=== PATIENT | male | born 1950 | race Asian ===

== ENCOUNTER 2023-05-24 15:06 | Inpatient (IN) | payer OTHER, MEDICAID ==
[~2023-05-24] VITALS: Ht 170.2 cm; Wt 79.8 kg
[2023-05-24 16:00] VITALS: PULSE 114; RESP 33; O2SAT 98
[2023-05-24] MEDS ORDERED: SODIUM CHLORIDE 0.9% 1,000 ML IV ONE (16:15)
[2023-05-24] MEDS ORDERED: methylPREDNISolone SOD SUCC 40 MG/ML VL IV ONE (16:45)
[2023-05-24] MEDS ORDERED: diphenhdrAMINE HCL 50 MG/1 ML VL IV ONE (16:45)
[2023-05-24] MEDS ORDERED: SODIUM CHLORIDE 0.9% 500 ML IV ONE (16:45)
[2023-05-24 16:48] LABS: Basophils # (auto) 0.1 10 ^3/uL (0-0.2); Basophils % (auto) 0.6 % (0.0-2.0); Eosinophils # (auto) 0.3 10 ^3/uL (0-0.8); Eosinophils % (auto) 2.8 % (0.0-7.0); Hematocrit 42.4 % (41.0-53.0); Hemoglobin 14.3 g/dL (13.5-17.5); Lymphocytes # (auto) 0.9 10 ^3/uL (0.4-5.4); Lymphocytes % (auto) 9.4 % (10.0-50.0); Mean Corpuscular Hemoglobin 31.8 pg (28.0-32.0); Mean Corpuscular Hgb Conc. 33.6 g/dL (32.0-36.0); Mean Corpuscular Volume 94.7 fL (80.0-100.0); Monocytes # (auto) 0.5 10 ^3/uL (0-1.3); Monocytes % (auto) 5.4 % (0.0-12.0); Neutrophils # (auto) 7.8 10 ^3/uL (1.6-8.6); Neutrophils % (auto) 81.8 % (37.0-80.0); Nucleated Red Blood Cells % 0.1 %; Red Blood Cells 4.48 10^6/uL (4.5-5.90); Red Cell Distribution Width 15.9 % (11.8-14.3); White Blood Cell 9.5 10^3/uL (4.4-10.8)
[2023-05-24] MEDS ORDERED: methylPREDNISolone SOD SUCC 125 MG/2 ML VL ONE (16:48)
[2023-05-24 17:20] LABS: Alanine Aminotransferase 23 U/L (7-40); Alkaline Phosphatase 119 U/L (46-116); Anion Gap 8 (5-15); Aspartate Aminotransferase 17 U/L (13-40); BUN/Creatinine Ratio 13.5 (10.0-20.0); Blood Urea Nitrogen 28 mg/dL (9-23); Calcium 9.1 mg/dL (8.7-10.4); Carbon Dioxide 23 mmol/L (20-30); Chloride 109 mmol/L (98-107); Glucose 239 mg/dL (74-106); Magnesium 2.5 mg/dL (1.6-2.6); Potassium 4.1 mmol/L (3.5-5.1); Sodium 140 mmol/L (136-145)
[2023-05-24 17:21] LABS: Albumin 4.8 g/dL (3.2-4.8); Bilirubin, Total 0.6 mg/dL (0.2-1.0); Total Protein 7.8 g/dL (5.7-8.2)
[2023-05-24] MEDS ORDERED: FUROSEMIDE 40 MG/4 ML VIAL IV ONE (17:30)
[2023-05-24] MEDS ORDERED: MORPHINE SULFATE INJ 2 MG/ml SYRG IV ONE (17:30)
[2023-05-24] MEDS ORDERED: cefTRIAXone 1GM/50ML D5W 50 ML IV ONE (17:30)
[2023-05-24] MEDS ORDERED: SPIRONOLACTONE 25 MG TAB PO ONE (17:30)
[2023-05-24 18:26] LABS: INR 0.97 (0.9-1.15); Partial Thromboplastin Time 30.2 SEC (24.5-34.5); Prothrombin Time 10.2 sec (9.3-11.8)
[2023-05-24] MEDS ORDERED: ENOXAPARIN SOD 60 MG/0.6 ML SYRINGE SC ONE (18:45)
[2023-05-24] MEDS: SODIUM CHLORIDE 0.9% 1,000 ML IV SCH (19:10)
[2023-05-24 19:12] LABS: Urine Bacteria NONE SEEN /hpf (None Seen); Urine Blood Negative /uL (Negative); Urine Clarity Clear (Clear); Urine Color Colorless (Yellow); Urine Protein, UAD Negative (Negative); Urine Urobilinogen Normal (Negative); Urine WBC 1 /hpf (0 - 3)
[2023-05-24 19:25] VITALS: PULSE 116; RESP 21; O2SAT 95
[2023-05-24] MEDS ORDERED: ACETAMINOPHEN 325 MG TAB PO PRN (19:45)
[2023-05-24] MEDS ORDERED: ONDANSETRON HCL 4 MG/2 ML VIAL IV PRN (19:45)
[2023-05-24] MEDS ORDERED: DEXTROSE (50%) 50ML SYRG IV PRN (19:45)
[2023-05-24] MEDS ORDERED: LOSA100T58 PO (20:20)
[2023-05-24] MEDS ORDERED: ROSU1TAB15 PO (20:20)
[2023-05-24] MEDS ORDERED: AMLO1TAB23 PO (20:20)
[2023-05-24] MEDS: ACCU-CHEK COMFORT CURVE STRIP VI SCH (22:00)
[2023-05-24] MEDS ORDERED: ASPirin-EC 325mg tab PO ONE (22:00)
[2023-05-24] MEDS: InsuLIN REG 1unit/0.01ml Soln (100units/ml) SC SCH (22:37)
[2023-05-24 22:41] VITALS: BP 142/74; PULSE 18; RESP 18; O2SAT 98
[2023-05-24 23:01] VITALS: PULSE 110; RESP 22; O2SAT 93
[2023-05-24] MEDS: ALBUTEROL SULF 2.5 MG/0.5ML(0.5%) NEB SOLN NEB PRN (23:01)
[2023-05-24] MEDS: IPRATROPIUM BROM 0.5 MG/2.5ML INH SOL NEB PRN (23:01)
[2023-05-24 23:02] VITALS: O2SAT 93
[2023-05-24 23:12] VITALS: PULSE 85; RESP 20; O2SAT 97
[2023-05-25] VITALS (12 sets, daily range): BP systolic 129–146; BP diastolic 72–84; PULSE 91–109; RESP 13–24; TEMP 98.4; O2SAT 93–97
[2023-05-25 00:23] LABS: COVID19 ANTIGEN SOFIA FIA NEGATIVE (NEGATIVE); Rapid Influenza A Negative (Negative); Rapid Influenza B Negative (Negative)
[2023-05-25] MEDS: MORPHINE SULFATE INJ 2 MG/ml SYRG IV PRN (00:27)
[2023-05-25] MEDS: NITROGLYCERIN 0.4 MG SL TAB SL PRN (01:06)
[2023-05-25] MEDS: HYDROcodone-ACET 5/325MG TAB PO PRN (05:22)
[2023-05-25] MEDS: ALBUTEROL SULF 2.5 MG/0.5ML(0.5%) NEB SOLN NEB PRN (05:29)
[2023-05-25] MEDS: IPRATROPIUM BROM 0.5 MG/2.5ML INH SOL NEB PRN (05:29)
[2023-05-25 05:31] LABS: Basophils # (auto) 0 10 ^3/uL (0-0.2); Basophils % (auto) 0.1 % (0.0-2.0); Eosinophils # (auto) 0 10 ^3/uL (0-0.8); Hemoglobin 13.6 g/dL (13.5-17.5); Lymphocytes # (auto) 0.4 10 ^3/uL (0.4-5.4); Mean Corpuscular Hemoglobin 31.6 pg (28.0-32.0); Mean Corpuscular Hgb Conc. 33.2 g/dL (32.0-36.0); Monocytes # (auto) 0.1 10 ^3/uL (0-1.3); Monocytes % (auto) 0.9 % (0.0-12.0); Neutrophils # (auto) 8.4 10 ^3/uL (1.6-8.6); Red Blood Cells 4.31 10^6/uL (4.5-5.90); Red Cell Distribution Width 15.9 % (11.8-14.3); White Blood Cell 8.8 10^3/uL (4.4-10.8)
[2023-05-25 06:18] LABS: Alanine Aminotransferase 20 U/L (7-40); Albumin 4.6 g/dL (3.2-4.8); Alkaline Phosphatase 111 U/L (46-116); Anion Gap 10 (5-15); Aspartate Aminotransferase 16 U/L (13-40); BUN/Creatinine Ratio 14.6 (10.0-20.0); Bilirubin, Total 0.5 mg/dL (0.2-1.0); Blood Urea Nitrogen 29 mg/dL (9-23); Calcium 8.9 mg/dL (8.7-10.4); Carbon Dioxide 21 mmol/L (20-30); Chloride 107 mmol/L (98-107); Glucose 147 mg/dL (74-106); Potassium 4.5 mmol/L (3.5-5.1); Sodium 138 mmol/L (136-145); Total Protein 7.5 g/dL (5.7-8.2)
[2023-05-25] MEDS: ACCU-CHEK COMFORT CURVE STRIP VI SCH ×4 (06:43→21:55)
[2023-05-25] MEDS: InsuLIN REG 1unit/0.01ml Soln (100units/ml) SC SCH ×4 (06:44→21:59)
[2023-05-25] MEDS ORDERED: METO-289 PO (08:15)
[2023-05-25] MEDS ORDERED: cefTRIAXone 1GM/50ML D5W 50 ML IV SCH (09:00)
[2023-05-25] MEDS ORDERED: AZITHROMYCIN 500MG/ 250ML 250 ML IV SCH (10:00)
[2023-05-25] MEDS ORDERED: PANTOPRAZOLE 40 MG TAB PO SCH (10:00)
[2023-05-25] MEDS ORDERED: ENOXAPARIN SOD 30 MG/0.3 ML SYRINGE SC SCH (10:00)
[2023-05-25] MEDS ORDERED: PATIENTS OWN MEDICATION (Rosuvastatin Calcium 1 TAB) PO SCH (10:00)
[2023-05-25] MEDS ORDERED: ENOXAPARIN SOD 100 MG/1 ML SYRINGE SC SCH (10:00)
[2023-05-25] MEDS ORDERED: PATIENTS OWN MEDICATION (Amlodipine Besylate 1 TAB) PO SCH (10:00)
[2023-05-25] MEDS ORDERED: ASPirin-EC 81 mg tab PO SCH (10:00)
[2023-05-25 10:46] LABS: Triglycerides 111 mg/dL (< 150)
[2023-05-25 10:47] LABS: LDL Cholesterol 59 mg/dL (< 100)
[2023-05-25 10:48] LABS: Cholesterol 111 mg/dL (< 200); HDL Cholesterol 37 mg/dL (40-59)
[2023-05-25] MEDS: FUROSEMIDE 20 MG/2 ML VIAL IV SCH (11:36)
[2023-05-25] MEDS: methylPREDNISolone SOD SUCC 40 MG/ML VL IV SCH ×2 (11:37→21:58)
[2023-05-25] MEDS ORDERED: NITROGLYCERIN 0.2MG/HR TOPICAL PATCH TD ONE (12:30)
[2023-05-25] MEDS ORDERED: CLOPIDOGREL 300 MG TAB PO ONE (12:45)
[2023-05-25] MEDS: IPRATROPIUM BROM 0.5 MG/2.5ML INH SOL NEB SCH (18:20)
[2023-05-25] MEDS: ALBUTEROL SULF 2.5 MG/0.5ML(0.5%) NEB SOLN NEB SCH (18:20)
[2023-05-25] MEDS: SODIUM CHLORIDE 0.9% 1,000 ML IV SCH (18:42)
[2023-05-25] MEDS ORDERED: ENOXAPARIN SOD 80 MG/0.8ML SYRINGE SC SCH (22:00)
[2023-05-26] VITALS (74 sets, daily range): BP systolic 106–150; BP diastolic 43–105; PULSE 76–119; RESP 11–29; TEMP 97.5–98.2; O2SAT 87–99
[2023-05-26] MEDS: IPRATROPIUM BROM 0.5 MG/2.5ML INH SOL NEB SCH ×5 (00:05→18:38)
[2023-05-26] MEDS: ALBUTEROL SULF 2.5 MG/0.5ML(0.5%) NEB SOLN NEB SCH ×5 (00:05→18:38)
[2023-05-26] MEDS: MORPHINE SULFATE INJ 2 MG/ml SYRG IV PRN ×2 (03:29→05:04)
[2023-05-26] MEDS ORDERED: HEPARIN SODIUM (PORCINE) 5000 UNITS/ML 1ML VIAL IV ONE (05:00)
[2023-05-26] MEDS ORDERED: HEPARIN DRIP/D5W 100UNITS/ML 250 ML IV SCH (05:00)
[2023-05-26 05:47] LABS: Basophils # (auto) 0 10 ^3/uL (0-0.2); Basophils % (auto) 0.1 % (0.0-2.0); Eosinophils # (auto) 0 10 ^3/uL (0-0.8); Hematocrit 40.1 % (41.0-53.0); Hemoglobin 13.8 g/dL (13.5-17.5); Lymphocytes # (auto) 0.8 10 ^3/uL (0.4-5.4); Lymphocytes % (auto) 6.3 % (10.0-50.0); Mean Corpuscular Hemoglobin 31.8 pg (28.0-32.0); Mean Corpuscular Hgb Conc. 34.3 g/dL (32.0-36.0); Mean Corpuscular Volume 92.9 fL (80.0-100.0); Monocytes # (auto) 0.6 10 ^3/uL (0-1.3); Monocytes % (auto) 4.8 % (0.0-12.0); Neutrophils # (auto) 11.3 10 ^3/uL (1.6-8.6); Neutrophils % (auto) 88.8 % (37.0-80.0); Red Blood Cells 4.32 10^6/uL (4.5-5.90); Red Cell Distribution Width 15.6 % (11.8-14.3); White Blood Cell 12.7 10^3/uL (4.4-10.8)
[2023-05-26 05:59] LABS: Chloride 108 mmol/L (98-107); Sodium 139 mmol/L (136-145)
[2023-05-26 06:00] LABS: Anion Gap 10 (5-15); Calcium 8.7 mg/dL (8.5-10.1); Carbon Dioxide 21 mmol/L (20-30)
[2023-05-26 06:01] LABS: INR 1.02 (0.9-1.15); Partial Thromboplastin Time 32.5 SEC (24.5-34.5); Prothrombin Time 10.7 sec (9.3-11.8)
[2023-05-26 06:05] LABS: BUN/Creatinine Ratio 19.4 (10.0-20.0); Blood Urea Nitrogen 35 mg/dL (9-23); Glucose 164 mg/dL (74-106)
[2023-05-26] MEDS ORDERED: NITROGLYCERIN 50MG/250ML 250 ML IV ONE (06:46)
[2023-05-26] MEDS: ACCU-CHEK COMFORT CURVE STRIP VI SCH ×4 (07:00→22:10)
[2023-05-26] MEDS: InsuLIN REG 1unit/0.01ml Soln (100units/ml) SC SCH ×4 (07:00→22:15)
[2023-05-26] MEDS ORDERED: HEPARIN IN NS 1000Units/500mL 0 ML ONE (07:36)
[2023-05-26] MEDS ORDERED: IODIXANOL 320MG/ML 100ML BTL IV ONE ×4 (07:36→08:46)
[2023-05-26] MEDS ORDERED: LIDOCAINE 2%HCL (LOCAL ANESTH.) INJ 20ML MDV ONE (07:36)
[2023-05-26] MEDS ORDERED: fentaNYL CITRATE 100 MCG/2 ML VL ONE (08:01)
[2023-05-26] MEDS ORDERED: MIDAZOLAM HCL 2MG/2ML 2ml VIAL (1mg/ml) ONE (08:01)
[2023-05-26] MEDS ORDERED: ANGIOMAX 250 MG VIAL IV ONE (08:01)
[2023-05-26] MEDS ORDERED: SODIUM CHL 0.9% 50 ML ONE (08:02)
[2023-05-26] MEDS ORDERED: VERAPAMIL 2.5MG/ML INJ 2ML VIAL IV ONE (08:10)
[2023-05-26] MEDS ORDERED: ATROPINE SULF 1 MG/10ml SYR ONE (08:30)
[2023-05-26] MEDS ORDERED: HYDROmorphone HCL 2 MG/ML VL/or syr ONE (08:52)
[2023-05-26] MEDS ORDERED: METOPROLOL TARTRATE 1MG/1ML-5ML VIAL IV ONE (09:14)
[2023-05-26] MEDS ORDERED: KETOROLAC TROMETH 30 MG/ML 1ML VIAL IV ONE (09:15)
[2023-05-26] MEDS ORDERED: TICAGRELOR 90 MG TAB ONE (09:23)
[2023-05-26] MEDS: NITROGLYCERIN 50MG/250ML 250 ML IV SCH (09:30)
[2023-05-26] MEDS ORDERED: ALPRAZolam 0.25 MG TAB PO PRN (10:00)
[2023-05-26] MEDS ORDERED: ZOLPIDEM TARTRATE 5 MG TAB PO ONE (10:00)
[2023-05-26] MEDS ORDERED: CLOPIDOGREL BISULFATE 75 MG TAB PO SCH (10:00)
[2023-05-26] MEDS ORDERED: METOPROLOL SUCCINATE XL 50 MG TAB PO SCH (10:00)
[2023-05-26] MEDS ORDERED: ZOLPIDEM TARTRATE 5 MG TAB PO PRN (11:00)
[2023-05-26] MEDS ORDERED: amLODIPine BESYLATE 5 MG TAB PO ONE (11:00)
[2023-05-26] MEDS: FUROSEMIDE 20 MG/2 ML VIAL IV SCH (11:06)
[2023-05-26] MEDS: methylPREDNISolone SOD SUCC 40 MG/ML VL IV SCH ×2 (11:06→21:59)
[2023-05-26] MEDS: ASPirin 81 mg TAB PO SCH (11:07)
[2023-05-26] MEDS: CARVEDILOL 3.125 MG TAB PO SCH ×2 (11:08→22:01)
[2023-05-26] MEDS: LISINOPRIL 5 MG TAB PO SCH (11:09)
[2023-05-26] MEDS: PANTOPRAZOLE 40 MG TAB PO SCH (11:09)
[2023-05-26] MEDS: ACETYLCYSTEINE ORAL for CIN 20%(200MG/ML) 4ML PO SCH ×2 (11:12→22:02)
[2023-05-26] MEDS: SODIUM CHLORIDE 0.9% 1,000 ML IV SCH (16:34)
[2023-05-26] MEDS ORDERED: ACETYLCYSTEINE PO FOR APAP TOX 200 MG/ML ML ONE (21:56)
[2023-05-26] MEDS: TICAGRELOR 90 MG TAB PO SCH (22:00)
[2023-05-26] MEDS: ATORVASTATIN 20 MG TAB PO SCH (22:00)
[2023-05-27] VITALS (96 sets, daily range): BP systolic 93–150; BP diastolic 30–109; PULSE 66–119; RESP 11–29; TEMP 97–98.1; O2SAT 90–100
[2023-05-27] MEDS: ALBUTEROL SULF 2.5 MG/0.5ML(0.5%) NEB SOLN NEB SCH ×4 (00:02→18:28)
[2023-05-27] MEDS: IPRATROPIUM BROM 0.5 MG/2.5ML INH SOL NEB SCH ×4 (00:02→18:28)
[2023-05-27 04:42] LABS: Basophils # (auto) 0 10 ^3/uL (0-0.2); Eosinophils # (auto) 0 10 ^3/uL (0-0.8); Hematocrit 42.1 % (41.0-53.0); Hemoglobin 13.9 g/dL (13.5-17.5); Lymphocytes # (auto) 0.6 10 ^3/uL (0.4-5.4); Lymphocytes % (auto) 4.3 % (10.0-50.0); Mean Corpuscular Hemoglobin 31.7 pg (28.0-32.0); Mean Corpuscular Hgb Conc. 33.1 g/dL (32.0-36.0); Mean Corpuscular Volume 95.7 fL (80.0-100.0); Monocytes # (auto) 0.4 10 ^3/uL (0-1.3); Monocytes % (auto) 2.9 % (0.0-12.0); Neutrophils # (auto) 13.4 10 ^3/uL (1.6-8.6); Neutrophils % (auto) 92.8 % (37.0-80.0); Nucleated Red Blood Cells % 0.1 %; Red Blood Cells 4.41 10^6/uL (4.5-5.90); Red Cell Distribution Width 16.3 % (11.8-14.3); White Blood Cell 14.4 10^3/uL (4.4-10.8)
[2023-05-27 05:09] LABS: Alanine Aminotransferase 26 U/L (7-40); Albumin 4.2 g/dL (3.2-4.8); Alkaline Phosphatase 89 U/L (46-116); Anion Gap 10 (5-15); Aspartate Aminotransferase 66 U/L (13-40); Bilirubin, Total 0.8 mg/dL (0.2-1.0); Blood Urea Nitrogen 30 mg/dL (9-23); Calcium 8.7 mg/dL (8.7-10.4); Carbon Dioxide 20 mmol/L (20-30); Chloride 106 mmol/L (98-107); Glucose 163 mg/dL (74-106); Potassium 4.2 mmol/L (3.5-5.1); Sodium 136 mmol/L (136-145); Total Protein 7.1 g/dL (5.7-8.2)
[2023-05-27] MEDS: NITROGLYCERIN 50MG/250ML 250 ML IV SCH (06:09)
[2023-05-27] MEDS: InsuLIN REG 1unit/0.01ml Soln (100units/ml) SC SCH ×4 (06:18→21:54)
[2023-05-27] MEDS: ACCU-CHEK COMFORT CURVE STRIP VI SCH ×4 (06:19→21:41)
[2023-05-27] MEDS ORDERED: amLODIPine BESYLATE 5 MG TAB PO SCH (10:00)
[2023-05-27] MEDS ORDERED: FUROSEMIDE 20 MG/2 ML VIAL IV SCH (10:45)
[2023-05-27] MEDS: SODIUM CHLORIDE 0.9% 1,000 ML IV SCH ×2 (10:45→22:38)
[2023-05-27] MEDS ORDERED: SODIUM CHLORIDE 0.9% 1,000 ML IV ONE (10:45)
[2023-05-27] MEDS: cefTRIAXone 1GM/50ML D5W 50 ML IV SCH (11:18)
[2023-05-27] MEDS: ASPirin 81 mg TAB PO SCH (11:18)
[2023-05-27] MEDS: methylPREDNISolone SOD SUCC 40 MG/ML VL IV SCH ×2 (11:18→21:40)
[2023-05-27] MEDS: PANTOPRAZOLE 40 MG TAB PO SCH (11:19)
[2023-05-27] MEDS: CARVEDILOL 3.125 MG TAB PO SCH ×2 (11:19→21:39)
[2023-05-27] MEDS: TICAGRELOR 90 MG TAB PO SCH ×2 (11:20→21:40)
[2023-05-27] MEDS: LISINOPRIL 5 MG TAB PO SCH (11:20)
[2023-05-27] MEDS: DOCUSATE SOD 100 MG CAP PO PRN (11:31)
[2023-05-27 12:30] LABS: Potassium 4.1 mmol/L (3.5-5.1)
[2023-05-27] MEDS: ACETYLCYSTEINE ORAL for CIN 20%(200MG/ML) 4ML PO SCH ×2 (12:37→21:42)
[2023-05-27] MEDS: DOXYCYCLINE 100MG/250ML 250 ML IV SCH (12:53)
[2023-05-27] MEDS ORDERED: FUROSEMIDE 40 MG/4 ML VIAL IV ONE (13:00)
[2023-05-27 18:27] LABS: Urine WBC None Seen /hpf (0 - 3)
[2023-05-27 19:09] LABS: Urine Bacteria NONE SEEN /hpf (None Seen); Urine Blood Negative /uL (Negative); Urine Clarity Clear (Clear); Urine Color Colorless (Yellow); Urine Protein, UAD Negative (Negative); Urine Specific Gravity 1.007 (1.001-1.035); Urine Urobilinogen Normal (Negative)
[2023-05-27] MEDS: ATORVASTATIN 20 MG TAB PO SCH (21:39)
[2023-05-28] VITALS (95 sets, daily range): BP systolic 87–155; BP diastolic 46–101; PULSE 58–110; RESP 11–31; TEMP 96.9–98; O2SAT 88–99
[2023-05-28] MEDS: IPRATROPIUM BROM 0.5 MG/2.5ML INH SOL NEB SCH ×4 (00:07→18:05)
[2023-05-28] MEDS: ALBUTEROL SULF 2.5 MG/0.5ML(0.5%) NEB SOLN NEB SCH ×4 (00:07→18:05)
[2023-05-28] MEDS: DOXYCYCLINE 100MG/250ML 250 ML IV SCH ×3 (00:44→23:59)
[2023-05-28 05:00] LABS: Basophils # (auto) 0 10 ^3/uL (0-0.2); Basophils % (auto) 0.1 % (0.0-2.0); Eosinophils # (auto) 0 10 ^3/uL (0-0.8); Hematocrit 40.3 % (41.0-53.0); Hemoglobin 13.5 g/dL (13.5-17.5); Lymphocytes # (auto) 0.7 10 ^3/uL (0.4-5.4); Lymphocytes % (auto) 6.3 % (10.0-50.0); Mean Corpuscular Hemoglobin 31.7 pg (28.0-32.0); Mean Corpuscular Hgb Conc. 33.5 g/dL (32.0-36.0); Mean Corpuscular Volume 94.6 fL (80.0-100.0); Monocytes # (auto) 0.4 10 ^3/uL (0-1.3); Monocytes % (auto) 3.8 % (0.0-12.0); Neutrophils % (auto) 89.8 % (37.0-80.0); Nucleated Red Blood Cells % 0.1 %; Red Blood Cells 4.26 10^6/uL (4.5-5.90); Red Cell Distribution Width 16.3 % (11.8-14.3); White Blood Cell 11.2 10^3/uL (4.4-10.8)
[2023-05-28 05:10] LABS: Chloride 106 mmol/L (98-107); Potassium 4.4 mmol/L (3.5-5.1); Sodium 135 mmol/L (136-145)
[2023-05-28 05:11] LABS: Calcium 8.5 mg/dL (8.5-10.1)
[2023-05-28 05:16] LABS: BUN/Creatinine Ratio 16.5 (10.0-20.0); Blood Urea Nitrogen 28 mg/dL (9-23); Glucose 171 mg/dL (74-106)
[2023-05-28 05:27] LABS: Anion Gap 10 (5-15); Carbon Dioxide 19 mmol/L (20-30)
[2023-05-28] MEDS: NITROGLYCERIN 50MG/250ML 250 ML IV SCH (06:25)
[2023-05-28] MEDS: ACCU-CHEK COMFORT CURVE STRIP VI SCH ×4 (06:38→21:37)
[2023-05-28] MEDS: InsuLIN REG 1unit/0.01ml Soln (100units/ml) SC SCH ×4 (06:40→21:46)
[2023-05-28] MEDS: cefTRIAXone 1GM/50ML D5W 50 ML IV SCH (09:20)
[2023-05-28] MEDS: methylPREDNISolone SOD SUCC 40 MG/ML VL IV SCH ×2 (09:46→21:36)
[2023-05-28] MEDS: PANTOPRAZOLE 40 MG TAB PO SCH (09:47)
[2023-05-28] MEDS: LISINOPRIL 5 MG TAB PO SCH (09:47)
[2023-05-28] MEDS: TICAGRELOR 90 MG TAB PO SCH ×2 (09:47→21:37)
[2023-05-28] MEDS: CARVEDILOL 3.125 MG TAB PO SCH ×2 (09:48→21:37)
[2023-05-28] MEDS ORDERED: IODIXANOL 320MG/ML 100ML BTL IV ONE (09:53)
[2023-05-28] MEDS ORDERED: LIDOCAINE 2%HCL (LOCAL ANESTH.) INJ 20ML MDV ONE (09:53)
[2023-05-28] MEDS: ACETYLCYSTEINE ORAL for CIN 20%(200MG/ML) 4ML PO SCH ×2 (09:54→21:36)
[2023-05-28] MEDS: ASPirin 81 mg TAB PO SCH (09:55)
[2023-05-28] MEDS ORDERED: ANGIOMAX 250 MG VIAL IV ONE (10:06)
[2023-05-28] MEDS ORDERED: MIDAZOLAM HCL 2MG/2ML 2ml VIAL (1mg/ml) ONE (10:07)
[2023-05-28] MEDS ORDERED: SODIUM CHL 0.9% 50 ML ONE (10:07)
[2023-05-28] MEDS ORDERED: fentaNYL CITRATE 100 MCG/2 ML VL ONE (10:07)
[2023-05-28] MEDS ORDERED: ATROPINE SULF 1 MG/10ml SYR ONE (10:35)
[2023-05-28] MEDS ORDERED: EPINEPHrine HCL 1 MG/10 ML SYRG ONE (10:35)
[2023-05-28] MEDS ORDERED: METOPROLOL TARTRATE 1MG/1ML-5ML VIAL IV ONE (10:53)
[2023-05-28] MEDS: MORPHINE SULFATE INJ 2 MG/ml SYRG IV PRN (11:53)
[2023-05-28] MEDS: FUROSEMIDE 40 MG/4 ML VIAL IV SCH (11:57)
[2023-05-28] MEDS: SODIUM CHLORIDE 0.9% 1,000 ML IV SCH ×2 (13:25→18:19)
[2023-05-28] MEDS: ATORVASTATIN 20 MG TAB PO SCH (21:37)
[2023-05-29] VITALS (56 sets, daily range): BP systolic 87–159; BP diastolic 42–98; PULSE 61–104; RESP 10–22; TEMP 97.6–98.9; O2SAT 92–100
[2023-05-29] MEDS: IPRATROPIUM BROM 0.5 MG/2.5ML INH SOL NEB SCH ×4 (00:20→17:53)
[2023-05-29] MEDS: ALBUTEROL SULF 2.5 MG/0.5ML(0.5%) NEB SOLN NEB SCH ×4 (00:20→17:53)
[2023-05-29] MEDS: HYDROcodone-ACET 5/325MG TAB PO PRN (02:51)
[2023-05-29 04:10] LABS: Basophils # (auto) 0 10 ^3/uL (0-0.2); Eosinophils # (auto) 0 10 ^3/uL (0-0.8); Hematocrit 42.7 % (41.0-53.0); Hemoglobin 14.4 g/dL (13.5-17.5); Lymphocytes # (auto) 0.6 10 ^3/uL (0.4-5.4); Lymphocytes % (auto) 6.5 % (10.0-50.0); Mean Corpuscular Hemoglobin 31.6 pg (28.0-32.0); Mean Corpuscular Hgb Conc. 33.8 g/dL (32.0-36.0); Mean Corpuscular Volume 93.8 fL (80.0-100.0); Monocytes # (auto) 0.6 10 ^3/uL (0-1.3); Neutrophils # (auto) 7.9 10 ^3/uL (1.6-8.6); Neutrophils % (auto) 86.5 % (37.0-80.0); Nucleated Red Blood Cells % 0.1 %; Red Blood Cells 4.55 10^6/uL (4.5-5.90); White Blood Cell 9.1 10^3/uL (4.4-10.8)
[2023-05-29 04:20] LABS: Anion Gap 9 (5-15); Carbon Dioxide 20 mmol/L (20-30); Chloride 105 mmol/L (98-107); Potassium 4.3 mmol/L (3.5-5.1); Sodium 134 mmol/L (136-145)
[2023-05-29 04:22] LABS: Calcium 8.7 mg/dL (8.7-10.4)
[2023-05-29 04:26] LABS: BUN/Creatinine Ratio 19.9 (10.0-20.0); Blood Urea Nitrogen 34 mg/dL (9-23)
[2023-05-29 04:42] LABS: Glucose 164 mg/dL (74-106)
[2023-05-29] MEDS: ACCU-CHEK COMFORT CURVE STRIP VI SCH ×4 (06:27→21:45)
[2023-05-29] MEDS: InsuLIN REG 1unit/0.01ml Soln (100units/ml) SC SCH ×4 (06:28→21:58)
[2023-05-29] MEDS: cefTRIAXone 1GM/50ML D5W 50 ML IV SCH (08:54)
[2023-05-29] MEDS: ASPirin 81 mg TAB PO SCH (09:55)
[2023-05-29] MEDS: FUROSEMIDE 40 MG/4 ML VIAL IV SCH (09:55)
[2023-05-29] MEDS: methylPREDNISolone SOD SUCC 40 MG/ML VL IV SCH ×2 (09:55→21:45)
[2023-05-29] MEDS: HCTZ 25 MG TAB PO SCH (09:56)
[2023-05-29] MEDS: TICAGRELOR 90 MG TAB PO SCH ×2 (09:57→21:45)
[2023-05-29] MEDS: PANTOPRAZOLE 40 MG TAB PO SCH (09:57)
[2023-05-29] MEDS: CARVEDILOL 12.5 MG TAB PO SCH ×2 (09:59→21:46)
[2023-05-29] MEDS ORDERED: CARVEDILOL 3.125 MG TAB PO SCH (10:00)
[2023-05-29] MEDS: DOCUSATE SOD 100 MG CAP PO PRN (10:21)
[2023-05-29] MEDS: DOXYCYCLINE 100MG/250ML 250 ML IV SCH ×2 (11:35→23:46)
[2023-05-29] MEDS ORDERED: SPIRONOLACTONE 25 MG TAB PO ONE (16:45)
[2023-05-29] MEDS: ATORVASTATIN 20 MG TAB PO SCH (21:45)
[2023-05-29] MEDS: hydrALAZINE HCL 20 MG/ML VL IV PRN (23:55)
[2023-05-30] VITALS (96 sets, daily range): BP systolic 91–180; BP diastolic 50–123; PULSE 64–106; RESP 8–24; TEMP 97.5–98.6; O2SAT 91–100
[2023-05-30] MEDS: NITROGLYCERIN 0.4 MG SL TAB SL PRN ×2 (00:34→05:47)
[2023-05-30] MEDS: ALBUTEROL SULF 2.5 MG/0.5ML(0.5%) NEB SOLN NEB SCH ×4 (00:42→18:53)
[2023-05-30] MEDS: IPRATROPIUM BROM 0.5 MG/2.5ML INH SOL NEB SCH ×4 (00:42→18:53)
[2023-05-30] MEDS: MORPHINE SULFATE INJ 2 MG/ml SYRG IV PRN ×3 (00:43→14:36)
[2023-05-30 04:21] LABS: Basophils # (auto) 0 10 ^3/uL (0-0.2); Eosinophils # (auto) 0 10 ^3/uL (0-0.8); Hematocrit 47.3 % (41.0-53.0); Hemoglobin 15.7 g/dL (13.5-17.5); Lymphocytes # (auto) 0.7 10 ^3/uL (0.4-5.4); Lymphocytes % (auto) 8.6 % (10.0-50.0); Mean Corpuscular Hemoglobin 31.5 pg (28.0-32.0); Mean Corpuscular Hgb Conc. 33.2 g/dL (32.0-36.0); Mean Corpuscular Volume 94.8 fL (80.0-100.0); Monocytes # (auto) 0.5 10 ^3/uL (0-1.3); Monocytes % (auto) 5.6 % (0.0-12.0); Neutrophils # (auto) 7.4 10 ^3/uL (1.6-8.6); Neutrophils % (auto) 85.8 % (37.0-80.0); Red Blood Cells 4.99 10^6/uL (4.5-5.90); Red Cell Distribution Width 15.7 % (11.8-14.3); White Blood Cell 8.7 10^3/uL (4.4-10.8)
[2023-05-30 04:32] LABS: Chloride 103 mmol/L (98-107); Potassium 4.1 mmol/L (3.5-5.1); Sodium 133 mmol/L (136-145)
[2023-05-30 04:33] LABS: Calcium 8.8 mg/dL (8.5-10.1)
[2023-05-30 04:37] LABS: Glucose 181 mg/dL (74-106)
[2023-05-30 04:38] LABS: BUN/Creatinine Ratio 18.5 (10.0-20.0); Blood Urea Nitrogen 36 mg/dL (9-23)
[2023-05-30 04:48] LABS: Anion Gap 10 (5-15); Carbon Dioxide 20 mmol/L (20-30)
[2023-05-30] MEDS: ACCU-CHEK COMFORT CURVE STRIP VI SCH ×4 (06:40→22:03)
[2023-05-30] MEDS: InsuLIN REG 1unit/0.01ml Soln (100units/ml) SC SCH ×4 (06:42→22:08)
[2023-05-30] MEDS ORDERED: NITROGLYCERIN 50MG/250ML 250 ML IV ONE (08:06)
[2023-05-30] MEDS: NITROGLYCERIN 50MG/250ML 250 ML IV SCH (08:13)
[2023-05-30] MEDS ORDERED: SODIUM CHLORIDE 0.9% 1,000 ML IV SCH (08:15)
[2023-05-30] MEDS: cefTRIAXone 1GM/50ML D5W 50 ML IV SCH (09:00)
[2023-05-30] MEDS: methylPREDNISolone SOD SUCC 40 MG/ML VL IV SCH ×2 (10:08→21:57)
[2023-05-30] MEDS: FUROSEMIDE 40 MG/4 ML VIAL IV SCH (10:08)
[2023-05-30] MEDS: ASPirin 81 mg TAB PO SCH (10:09)
[2023-05-30] MEDS: TICAGRELOR 90 MG TAB PO SCH ×2 (10:09→21:58)
[2023-05-30] MEDS: CARVEDILOL 12.5 MG TAB PO SCH ×2 (10:09→21:57)
[2023-05-30] MEDS: PANTOPRAZOLE 40 MG TAB PO SCH (10:09)
[2023-05-30] MEDS: SPIRONOLACTONE 25 MG TAB PO SCH (10:10)
[2023-05-30] MEDS: HCTZ 25 MG TAB PO SCH (10:12)
[2023-05-30] MEDS ORDERED: IODIXANOL 320MG/ML 100ML BTL IV ONE (10:35)
[2023-05-30] MEDS ORDERED: LIDOCAINE 2%HCL (LOCAL ANESTH.) INJ 20ML MDV ONE (10:35)
[2023-05-30] MEDS ORDERED: fentaNYL CITRATE 100 MCG/2 ML VL ONE (10:39)
[2023-05-30] MEDS ORDERED: MIDAZOLAM HCL 2MG/2ML 2ml VIAL (1mg/ml) ONE (10:39)
[2023-05-30] MEDS ORDERED: VERAPAMIL 2.5MG/ML INJ 2ML VIAL IV ONE (10:41)
[2023-05-30] MEDS ORDERED: HEPARIN SODIUM (PORCINE) 5000 UNITS/ML 1ML VIAL ONE (10:41)
[2023-05-30] MEDS ORDERED: SODIUM CHL 0.9% 50 ML ONE (11:18)
[2023-05-30] MEDS ORDERED: ANGIOMAX 250 MG VIAL IV ONE (11:18)
[2023-05-30] MEDS ORDERED: FUROSEMIDE 40 MG/4 ML VIAL IV ONE (12:00)
[2023-05-30] MEDS: DOXYCYCLINE 100MG/250ML 250 ML IV SCH ×2 (12:31→23:53)
[2023-05-30] MEDS: SODIUM CHLORIDE 0.9% 1,000 ML IV SCH ×2 (12:32→21:58)
[2023-05-30] MEDS: ATORVASTATIN 20 MG TAB PO SCH (22:18)
[2023-05-31] VITALS (79 sets, daily range): BP systolic 99–164; BP diastolic 59–90; PULSE 58–113; RESP 9–32; TEMP 97.9–98.7; O2SAT 91–100
[2023-05-31] MEDS: IPRATROPIUM BROM 0.5 MG/2.5ML INH SOL NEB SCH ×4 (00:26→18:48)
[2023-05-31] MEDS: ALBUTEROL SULF 2.5 MG/0.5ML(0.5%) NEB SOLN NEB SCH ×4 (00:26→18:48)
[2023-05-31] MEDS: SODIUM CHLORIDE 0.9% 1,000 ML IV SCH ×3 (02:46→21:43)
[2023-05-31 04:33] LABS: Anion Gap 8 (5-15); Carbon Dioxide 22 mmol/L (20-30); Chloride 102 mmol/L (98-107); Potassium 4.1 mmol/L (3.5-5.1); Sodium 132 mmol/L (136-145)
[2023-05-31 04:34] LABS: Calcium 8.5 mg/dL (8.7-10.4)
[2023-05-31 04:39] LABS: BUN/Creatinine Ratio 21.1 (10.0-20.0); Blood Urea Nitrogen 38 mg/dL (9-23); Glucose 148 mg/dL (74-106)
[2023-05-31 04:49] LABS: Basophils # (auto) 0 10 ^3/uL (0-0.2); Basophils % (auto) 0.5 % (0.0-2.0); Eosinophils # (auto) 0 10 ^3/uL (0-0.8); Hematocrit 46.1 % (41.0-53.0); Hemoglobin 15.3 g/dL (13.5-17.5); Lymphocytes # (auto) 0.6 10 ^3/uL (0.4-5.4); Mean Corpuscular Hemoglobin 31.3 pg (28.0-32.0); Mean Corpuscular Hgb Conc. 33.3 g/dL (32.0-36.0); Mean Corpuscular Volume 94.2 fL (80.0-100.0); Monocytes # (auto) 0.5 10 ^3/uL (0-1.3); Monocytes % (auto) 5.1 % (0.0-12.0); Neutrophils # (auto) 8.6 10 ^3/uL (1.6-8.6); Neutrophils % (auto) 88.4 % (37.0-80.0); Nucleated Red Blood Cells % 0.1 %; Red Blood Cells 4.89 10^6/uL (4.5-5.90); Red Cell Distribution Width 15.9 % (11.8-14.3); White Blood Cell 9.7 10^3/uL (4.4-10.8)
[2023-05-31] MEDS: ACCU-CHEK COMFORT CURVE STRIP VI SCH ×4 (06:24→21:46)
[2023-05-31] MEDS: InsuLIN REG 1unit/0.01ml Soln (100units/ml) SC SCH ×4 (06:28→21:47)
[2023-05-31] MEDS: cefTRIAXone 1GM/50ML D5W 50 ML IV SCH (08:08)
[2023-05-31] MEDS: NITROGLYCERIN 50MG/250ML 250 ML IV SCH (08:08)
[2023-05-31] MEDS: methylPREDNISolone SOD SUCC 40 MG/ML VL IV SCH ×2 (10:17→21:43)
[2023-05-31] MEDS: SPIRONOLACTONE 25 MG TAB PO SCH (10:18)
[2023-05-31] MEDS: ASPirin 81 mg TAB PO SCH (10:19)
[2023-05-31] MEDS: CARVEDILOL 12.5 MG TAB PO SCH ×2 (10:19→21:45)
[2023-05-31] MEDS: TICAGRELOR 90 MG TAB PO SCH ×2 (10:20→21:44)
[2023-05-31] MEDS: PANTOPRAZOLE 40 MG TAB PO SCH (10:20)
[2023-05-31] MEDS: HCTZ 25 MG TAB PO SCH (10:20)
[2023-05-31] MEDS ORDERED: DEXTROSE (50%) 50ML SYRG IV PRN ×2 (11:30)
[2023-05-31] MEDS ORDERED: InsuLIN REG 1unit/0.01ml Soln (100units/ml) SC SCH ×2 (11:30→22:00)
[2023-05-31] MEDS ORDERED: ACCU-CHEK COMFORT CURVE STRIP VI SCH (11:30)
[2023-05-31] MEDS: DOXYCYCLINE 100MG/250ML 250 ML IV SCH ×2 (12:18→23:25)
[2023-05-31] MEDS ORDERED: RANOLAZINE ER 500 MG TAB PO ONE (13:30)
[2023-05-31] MEDS ORDERED: ISOSORBIDE MONONITRATE ER 60 MG TAB PO ONE (13:30)
[2023-05-31] MEDS: ATORVASTATIN 20 MG TAB PO SCH (21:45)
[2023-05-31] MEDS: RANOLAZINE ER 500 MG TAB PO SCH (21:46)
[2023-06-01] VITALS (53 sets, daily range): BP systolic 103–173; BP diastolic 47–89; PULSE 60–100; RESP 10–37; TEMP 97.5–98.7; O2SAT 90–99
[2023-06-01] MEDS: ALBUTEROL SULF 2.5 MG/0.5ML(0.5%) NEB SOLN NEB SCH ×3 (00:40→11:52)
[2023-06-01] MEDS: IPRATROPIUM BROM 0.5 MG/2.5ML INH SOL NEB SCH ×4 (00:40→18:07)
[2023-06-01 04:24] LABS: Alanine Aminotransferase 34 U/L (7-40); Albumin 3.8 g/dL (3.2-4.8); Alkaline Phosphatase 72 U/L (46-116); Anion Gap 8 (5-15); Aspartate Aminotransferase 18 U/L (13-40); Bilirubin, Total 0.9 mg/dL (0.2-1.0); Blood Urea Nitrogen 31 mg/dL (9-23); Calcium 8.3 mg/dL (8.7-10.4); Carbon Dioxide 20 mmol/L (20-30); Chloride 105 mmol/L (98-107); Glucose 158 mg/dL (74-106); Potassium 4.7 mmol/L (3.5-5.1); Sodium 133 mmol/L (136-145); Total Protein 6.4 g/dL (5.7-8.2)
[2023-06-01 04:32] LABS: Basophils # (auto) 0 10 ^3/uL (0-0.2); Basophils % (auto) 0.1 % (0.0-2.0); Eosinophils # (auto) 0 10 ^3/uL (0-0.8); Hematocrit 42.9 % (41.0-53.0); Hemoglobin 14.3 g/dL (13.5-17.5); Lymphocytes # (auto) 0.4 10 ^3/uL (0.4-5.4); Lymphocytes % (auto) 4.5 % (10.0-50.0); Mean Corpuscular Hemoglobin 31.9 pg (28.0-32.0); Mean Corpuscular Hgb Conc. 33.3 g/dL (32.0-36.0); Mean Corpuscular Volume 95.5 fL (80.0-100.0); Monocytes # (auto) 0.3 10 ^3/uL (0-1.3); Monocytes % (auto) 3.7 % (0.0-12.0); Neutrophils # (auto) 7.6 10 ^3/uL (1.6-8.6); Neutrophils % (auto) 91.7 % (37.0-80.0); Nucleated Red Blood Cells % 0.1 %; Red Blood Cells 4.49 10^6/uL (4.5-5.90); White Blood Cell 8.3 10^3/uL (4.4-10.8)
[2023-06-01] MEDS: SODIUM CHLORIDE 0.9% 1,000 ML IV SCH ×3 (05:16→20:00)
[2023-06-01] MEDS ORDERED: ALBUTEROL MEDNEB 2.5 mg/3ml NEB ONE ×2 (05:34→11:40)
[2023-06-01] MEDS: ACCU-CHEK COMFORT CURVE STRIP VI SCH ×4 (06:40→22:00)
[2023-06-01] MEDS: InsuLIN REG 1unit/0.01ml Soln (100units/ml) SC SCH ×4 (06:42→22:00)
[2023-06-01] MEDS: methylPREDNISolone SOD SUCC 40 MG/ML VL IV SCH ×2 (08:59→20:41)
[2023-06-01] MEDS: cefTRIAXone 1GM/50ML D5W 50 ML IV SCH (09:00)
[2023-06-01] MEDS: RANOLAZINE ER 500 MG TAB PO SCH ×2 (09:02→20:43)
[2023-06-01] MEDS: CARVEDILOL 12.5 MG TAB PO SCH ×2 (09:02→20:42)
[2023-06-01] MEDS: PANTOPRAZOLE 40 MG TAB PO SCH (09:02)
[2023-06-01] MEDS: TICAGRELOR 90 MG TAB PO SCH ×2 (09:02→20:42)
[2023-06-01] MEDS: ISOSORBIDE MONONITRATE ER 60 MG TAB PO SCH (09:03)
[2023-06-01] MEDS: SPIRONOLACTONE 25 MG TAB PO SCH (09:04)
[2023-06-01] MEDS: ASPirin 81 mg TAB PO SCH (09:04)
[2023-06-01] MEDS: DOXYCYCLINE 100MG/250ML 250 ML IV SCH (11:12)
[2023-06-01] MEDS: ALBUTEROL MEDNEB 2.5 mg/3ml NEB NEB SCH ×2 (12:15→18:07)
[2023-06-01] MEDS: ATORVASTATIN 20 MG TAB PO SCH (20:42)
[2023-06-02] VITALS (37 sets, daily range): BP systolic 99–170; BP diastolic 65–105; PULSE 54–89; RESP 12–28; TEMP 97.7–98.2; O2SAT 90–99
[2023-06-02] MEDS: ALBUTEROL MEDNEB 2.5 mg/3ml NEB NEB SCH ×3 (00:15→12:15)
[2023-06-02] MEDS: SODIUM CHLORIDE 0.9% 1,000 ML IV SCH ×2 (06:00→12:00)
[2023-06-02] MEDS: hydrALAZINE HCL 20 MG/ML VL IV PRN (06:14)
[2023-06-02] MEDS: ACCU-CHEK COMFORT CURVE STRIP VI SCH ×2 (06:25→12:04)
[2023-06-02] MEDS: InsuLIN REG 1unit/0.01ml Soln (100units/ml) SC SCH ×2 (06:26→12:07)
[2023-06-02] MEDS: IPRATROPIUM BROM 0.5 MG/2.5ML INH SOL NEB SCH ×3 (07:00→12:00)
[2023-06-02] MEDS: amLODIPine BESYLATE 5 MG TAB PO SCH ×2 (07:39→10:10)
[2023-06-02 07:46] LABS: Basophils # (auto) 0 10 ^3/uL (0-0.2); Basophils % (auto) 0.2 % (0.0-2.0); Eosinophils # (auto) 0 10 ^3/uL (0-0.8); Hematocrit 44.5 % (41.0-53.0); Hemoglobin 14.9 g/dL (13.5-17.5); Lymphocytes # (auto) 0.4 10 ^3/uL (0.4-5.4); Lymphocytes % (auto) 4.4 % (10.0-50.0); Mean Corpuscular Hemoglobin 31.6 pg (28.0-32.0); Mean Corpuscular Hgb Conc. 33.5 g/dL (32.0-36.0); Mean Corpuscular Volume 94.4 fL (80.0-100.0); Monocytes # (auto) 0.6 10 ^3/uL (0-1.3); Monocytes % (auto) 6.2 % (0.0-12.0); Neutrophils # (auto) 8.2 10 ^3/uL (1.6-8.6); Neutrophils % (auto) 89.2 % (37.0-80.0); Red Blood Cells 4.71 10^6/uL (4.5-5.90); Red Cell Distribution Width 16.2 % (11.8-14.3); White Blood Cell 9.2 10^3/uL (4.4-10.8)
[2023-06-02 08:08] LABS: Alanine Aminotransferase 34 U/L (7-40); Albumin 3.8 g/dL (3.2-4.8); Alkaline Phosphatase 66 U/L (46-116); Anion Gap 8 (5-15); Aspartate Aminotransferase 15 U/L (13-40); BUN/Creatinine Ratio 16.8 (10.0-20.0); Bilirubin, Total 0.9 mg/dL (0.2-1.0); Blood Urea Nitrogen 29 mg/dL (9-23); Calcium 8.6 mg/dL (8.5-10.1); Carbon Dioxide 21 mmol/L (20-30); Chloride 106 mmol/L (98-107); Glucose 174 mg/dL (74-106); Potassium 4.6 mmol/L (3.5-5.1); Sodium 135 mmol/L (136-145); Total Protein 6.4 g/dL (5.7-8.2)
[2023-06-02] MEDS: cefTRIAXone 1GM/50ML D5W 50 ML IV SCH (09:21)
[2023-06-02] MEDS: methylPREDNISolone SOD SUCC 40 MG/ML VL IV SCH (09:36)
[2023-06-02] MEDS: ASPirin 81 mg TAB PO SCH (09:37)
[2023-06-02] MEDS: ISOSORBIDE MONONITRATE ER 60 MG TAB PO SCH (09:37)
[2023-06-02] MEDS: CARVEDILOL 12.5 MG TAB PO SCH (09:40)
[2023-06-02] MEDS: TICAGRELOR 90 MG TAB PO SCH (09:40)
[2023-06-02] MEDS: SPIRONOLACTONE 25 MG TAB PO SCH (09:40)
[2023-06-02] MEDS: RANOLAZINE ER 500 MG TAB PO SCH (09:40)
[2023-06-02] MEDS: PANTOPRAZOLE 40 MG TAB PO SCH (09:40)
[2023-06-02] MEDS: DOXYCYCLINE 100MG/250ML 250 ML IV SCH ×2 (12:00)
[2023-06-02] MEDS ORDERED: AML5T PO (14:48)
[2023-06-02] MEDS ORDERED: ASPI-325 PO (14:48)
[2023-06-02] MEDS ORDERED: ISO60SRT PO (14:48)
[2023-06-02] MEDS ORDERED: CAR125T PO (14:48)
[2023-06-02] MEDS ORDERED: TICA90TA PO (14:48)
== END 2023-06-02 16:16 | disposition home or self-care (01) | DRG 323 ==
LOC: EDBD 15:06 → ER 15:06 → TELE 20:04 → DOU IN ICU 05-25 23:12 → ICU WEST 05-26 18:05
PROVIDERS: ADMIT Nurse Practitioner Family; ATTEND Nurse Practitioner Acute Care
PROC: 027034Z Dilation of Coronary Artery, One Artery with Drug-eluting Intraluminal Device, Percutaneous Approach (ICD-10-PCS; principal; 2023-05-26)
PROC: 02703DZ Dilation of Coronary Artery, One Artery with Intraluminal Device, Percutaneous Approach (ICD-10-PCS; 2023-05-26)
PROC: B240ZZ3 Ultrasonography of Single Coronary Artery, Intravascular (ICD-10-PCS; 2023-05-26)
PROC: 4A023N7 Measurement of Cardiac Sampling and Pressure, Left Heart, Percutaneous Approach (ICD-10-PCS; 2023-05-26)
PROC: B211YZZ Fluoroscopy of Multiple Coronary Arteries using Other Contrast (ICD-10-PCS; 2023-05-26)
PROC: B215YZZ Fluoroscopy of Left Heart using Other Contrast (ICD-10-PCS; 2023-05-26)
PROC: 02F03ZZ Fragmentation in Coronary Artery, One Artery, Percutaneous Approach (ICD-10-PCS; 2023-05-28)
PROC: 02703DZ Dilation of Coronary Artery, One Artery with Intraluminal Device, Percutaneous Approach (ICD-10-PCS; 2023-05-28)
PROC: 4A023N7 Measurement of Cardiac Sampling and Pressure, Left Heart, Percutaneous Approach (ICD-10-PCS; 2023-05-28)
PROC: B211YZZ Fluoroscopy of Multiple Coronary Arteries using Other Contrast (ICD-10-PCS; 2023-05-28)
PROC: 4A023N7 Measurement of Cardiac Sampling and Pressure, Left Heart, Percutaneous Approach (ICD-10-PCS; 2023-05-30)
PROC: B211YZZ Fluoroscopy of Multiple Coronary Arteries using Other Contrast (ICD-10-PCS; 2023-05-30)
PROC: B240ZZ3 Ultrasonography of Single Coronary Artery, Intravascular (ICD-10-PCS; 2023-05-30)
PROC: 5A1935Z Respiratory Ventilation, Less than 24 Consecutive Hours (ICD-10-PCS; 2023-06-01)
DX: I21.4 Non-ST elevation (NSTEMI) myocardial infarction (principal); I50.43 Acute on chronic combined systolic (congestive) and diastolic (congestive) heart failure; J96.01 Acute respiratory failure with hypoxia; J15.69 Pneumonia due to other Gram-negative bacteria; N17.0 Acute kidney failure with tubular necrosis; I13.0 Hypertensive heart and chronic kidney disease with heart failure and stage 1 through stage 4 chronic kidney disease, or unspecified chronic kidney disease; J44.1 Chronic obstructive pulmonary disease with (acute) exacerbation; J45.901 Unspecified asthma with (acute) exacerbation; J44.0 Chronic obstructive pulmonary disease with (acute) lower respiratory infection; Z20.822 Contact with and (suspected) exposure to COVID-19; E78.5 Hyperlipidemia, unspecified; E11.22 Type 2 diabetes mellitus with diabetic chronic kidney disease; E11.65 Type 2 diabetes mellitus with hyperglycemia; I25.10 Atherosclerotic heart disease of native coronary artery without angina pectoris; F17.200 Nicotine dependence, unspecified, uncomplicated; N18.32 Chronic kidney disease, stage 3b; Z79.899 Other long term (current) drug therapy; Z79.02 Long term (current) use of antithrombotics/antiplatelets
CPT/HCPCS: 36415; 71045; 76775; 80048; 80053; 80061; 81001; 82962; 83036; 83735; 83880; 84132; 84443; 84484; 85025; 85379; 85610; 85730; 86850; 86900; 86901; 87040; 87081; 87426; 87804; 92928; 92941; 92978; 93005; 93306; 93458; 93970; 93971; 94640; 96365; 96375; 97163; 99152; 99153; C1874; C1887; G0378; J0696; J1815; J2250; J3490; Q9967

== ENCOUNTER 2023-09-21 10:00 | Inpatient (IN) | payer OTHER, MEDICAID ==
[~2023-09-21] VITALS: Ht 170.2 cm; Wt 81.8 kg
[~2023-09-21 10:00] MED LIST: AML5T PO; AMLO1TAB23 PO; ASPI-325 PO; CAR125T PO; ISO60SRT PO; LOSA100T58 PO; METO-289 PO; ROSU1TAB15 PO; TICA90TA PO
[2023-09-21 10:15] VITALS: PULSE 78; RESP 17; TEMP 98.4; O2SAT 95
[2023-09-21 10:36] LABS: Basophils # (auto) 0 10 ^3/uL (0-0.2); Basophils % (auto) 0.3 % (0.0-2.0); Eosinophils # (auto) 0.1 10 ^3/uL (0-0.8); Eosinophils % (auto) 2.1 % (0.0-7.0); Hematocrit 39.4 % (41.0-53.0); Hemoglobin 12.9 g/dL (13.5-17.5); Lymphocytes # (auto) 0.8 10 ^3/uL (0.4-5.4); Lymphocytes % (auto) 12.7 % (10.0-50.0); Mean Corpuscular Hemoglobin 32.3 pg (28.0-32.0); Mean Corpuscular Hgb Conc. 32.7 g/dL (32.0-36.0); Mean Corpuscular Volume 98.8 fL (80.0-100.0); Monocytes # (auto) 0.5 10 ^3/uL (0-1.3); Monocytes % (auto) 7.3 % (0.0-12.0); Neutrophils # (auto) 5.2 10 ^3/uL (1.6-8.6); Neutrophils % (auto) 77.6 % (37.0-80.0); Red Blood Cells 3.99 10^6/uL (4.5-5.90); Red Cell Distribution Width 16.4 % (11.8-14.3); White Blood Cell 6.6 10^3/uL (4.4-10.8)
[2023-09-21] MEDS: ONDANSETRON HCL 4 MG/2 ML VIAL IV ONE (10:40)
[2023-09-21] MEDS: MORPHINE SULFATE 4 MG/ML SYR/VIAL IV ONE (10:41)
[2023-09-21] MEDS: NITROGLYCERIN 0.4 MG SL TAB SL ONE (10:41)
[2023-09-21 10:49] LABS: Alanine Aminotransferase 13 U/L (7-40); Alkaline Phosphatase 96 U/L (46-116); Anion Gap 9 (5-15); Aspartate Aminotransferase 27 U/L (13-40); BUN/Creatinine Ratio 15.8 (10.0-20.0); Blood Urea Nitrogen 28 mg/dL (9-23); Calcium 8.8 mg/dL (8.5-10.1); Carbon Dioxide 22 mmol/L (20-30); Chloride 112 mmol/L (98-107); Glucose 111 mg/dL (74-106); Potassium 3.9 mmol/L (3.5-5.1); Sodium 143 mmol/L (136-145)
[2023-09-21 10:50] LABS: Bilirubin, Total 1.8 mg/dL (0.2-1.0); Total Protein 5.8 g/dL (5.7-8.2)
[2023-09-21] MEDS: HEPARIN SODIUM (PORCINE) 5000 UNITS/ML 1ML VIAL IV ONE ×2 (11:15→11:18)
[2023-09-21] MEDS: HEPARIN DRIP/D5W 100UNITS/ML 250 ML IV SCH (11:40)
[2023-09-21] MEDS ORDERED: ALPRAZolam 0.25 MG TAB PO PRN (12:30)
[2023-09-21 12:37] LABS: INR 1.03 (0.9-1.15); Partial Thromboplastin Time 31.1 SEC (24.5-34.5); Prothrombin Time 10.8 sec (9.3-11.8)
[2023-09-21] MEDS ORDERED: MORPHINE SULFATE INJ 2 MG/ml SYRG IV PRN (13:15)
[2023-09-21] MEDS: EPTIFIBATIDE DRIP(0.75MG/ML) 100 ML IV ONE (13:51)
[2023-09-21] MEDS: EPTIFIBATIDE INJ (2MG/ML) 10ML VIAL IV ONE (13:54)
[2023-09-21] MEDS: CLOPIDOGREL BISULFATE 75 MG TAB PO SCH (13:57)
[2023-09-21] MEDS: MORPHINE SULFATE INJ 2 MG/ml SYRG IV PRN ×2 (14:33→16:15)
[2023-09-21] MEDS: NOREPINEPHRINE 8 MG/250ML KIT 250 ML IV ONE (15:02)
[2023-09-21] MEDS: NOREPINEPHRINE 8 MG/250ML KIT 250 ML IV SCH (15:02)
[2023-09-21] MEDS: PANTOPRAZOLE 40 MG/10 ML VIAL INJ IV SCH (15:14)
[2023-09-21] MEDS: NITROGLYCERIN 0.4 MG SL TAB SL PRN (15:16)
[2023-09-21 15:26] LABS: Urine Bacteria NONE SEEN /hpf (None Seen); Urine Blood Negative /uL (Negative); Urine Clarity Clear (Clear); Urine Color Yellow (Yellow); Urine Protein, UAD TRACE (Negative); Urine Specific Gravity 1.031 (1.001-1.035); Urine WBC 1 /hpf (0 - 3); Urine pH 5.5 (5.0-8.0)
[2023-09-21] MEDS: SODIUM CHLORIDE 0.9% 500 ML IV ONE (16:41)
[2023-09-21] MEDS: PHENYLEPHRINE IV 250 ML IV ONE (16:43)
[2023-09-21] MEDS: DOPamine 1600MCG/ML D5W 250 ML IV ONE (16:43)
[2023-09-21] MEDS: diphenhdrAMINE HCL 50 MG/1 ML VL ONE (16:49)
[2023-09-21] MEDS: diphenhdrAMINE HCL 50 MG/1 ML VL IV ONE (16:49)
[2023-09-21 17:03] VITALS: O2SAT 90
[2023-09-21] MEDS: PHENYLEPHRINE IV 250 ML IV SCH (17:29)
[2023-09-21] MEDS: DOPamine 1600MCG/ML D5W 250 ML IV SCH (17:30)
[2023-09-21] MEDS: ONDANSETRON HCL 4 MG/2 ML VIAL IV PRN (17:31)
[2023-09-21 17:32] LABS: Lipase 30 U/L (12-53)
[2023-09-21 17:34] LABS: Amylase 50 U/L (30-118)
[2023-09-21 17:46] LABS: INR 1.07 (0.9-1.15); Prothrombin Time 11.2 sec (9.3-11.8)
[2023-09-21] MEDS: ROCURONIUM 10MG/ML 10ML VIAL IV ONE ×2 (17:49→18:19)
[2023-09-21] MEDS: ETOMIDATE (2MG/ML) 20ML VIAL IV ONE ×2 (17:49→18:07)
[2023-09-21 17:50] LABS: Partial Thromboplastin Time 93.3 SEC (24.5-34.5)
[2023-09-21] MEDS: EPINEPHrine HCL 1 MG/10 ML SYRG IV ONE (17:53)
[2023-09-21] MEDS: ATROPINE SULF 1 MG/10ml SYR IV ONE (17:54)
[2023-09-21] MEDS: SODIUM BICARB 8.4% 50Meq/50ml SYR Vial IV ONE ×3 (17:56→19:23)
[2023-09-21 17:57] VITALS: PULSE 58; RESP 18
[2023-09-21] MEDS ORDERED: EPINEPHrine HCL 250 ML IV SCH (18:00)
[2023-09-21 18:05] VITALS: BP 128/80
[2023-09-21] MEDS: MIDAZOLAM DRIP 50 mg/50mL 50 ML IV SCH (18:05)
[2023-09-21] MEDS ORDERED: ANGIOMAX 250 MG VIAL IV ONE (18:05)
[2023-09-21] MEDS ORDERED: fentaNYL CITRATE 100 MCG/2 ML VL ONE (18:06)
[2023-09-21] MEDS ORDERED: VERAPAMIL 2.5MG/ML INJ 2ML VIAL IV ONE (18:06)
[2023-09-21] MEDS ORDERED: HEPARIN SODIUM (PORCINE) 5000 UNITS/ML 1ML VIAL ONE (18:06)
[2023-09-21] MEDS ORDERED: IODIXANOL 320MG/ML 100ML BTL IV ONE ×2 (18:07→18:56)
[2023-09-21] MEDS ORDERED: HEPARIN IN NS 1000Units/500mL 0 ML ONE (18:07)
[2023-09-21] MEDS ORDERED: LIDOCAINE 2%HCL (LOCAL ANESTH.) INJ 20ML MDV ONE ×2 (18:07→18:11)
[2023-09-21] MEDS: MIDAZOLAM HCL 2MG/2ML 2ml VIAL (1mg/ml) ONE (18:07)
[2023-09-21] MEDS ORDERED: SODIUM CHL 0.9% 50 ML ONE (18:07)
[2023-09-21] MEDS: MIDAZOLAM DRIP 50 mg/50mL 50 ML IV ONE (18:08)
[2023-09-21] MEDS: EPINEPHrine HCL 250 ML IV ONE (18:08)
[2023-09-21] MEDS ORDERED: IOHEXOL 350 MG/ML 100ML IJ ONE ×2 (18:11→18:24)
[2023-09-21] MEDS: SODIUM BICARB 8.4% 50Meq/50ml SYR INJ ONE (18:19)
[2023-09-21 18:20] LABS: Basophils # (auto) 0 10 ^3/uL (0-0.2); Eosinophils # (auto) 0.1 10 ^3/uL (0-0.8); Mean Corpuscular Hemoglobin 32.9 pg (28.0-32.0); Mean Corpuscular Hgb Conc. 32.2 g/dL (32.0-36.0); Monocytes # (auto) 0.5 10 ^3/uL (0-1.3); Neutrophils # (auto) 5.3 10 ^3/uL (1.6-8.6); Nucleated Red Blood Cells % 0.1 %
[2023-09-21 18:21] LABS: Basophils % (auto) 0.2 % (0.0-2.0); Eosinophils % (auto) 1.4 % (0.0-7.0); Hematocrit 21.4 % (41.0-53.0); Lymphocytes # (auto) 1.6 10 ^3/uL (0.4-5.4); Lymphocytes % (auto) 21.8 % (10.0-50.0); Mean Corpuscular Volume 102.2 fL (80.0-100.0); Monocytes % (auto) 6.4 % (0.0-12.0); Neutrophils % (auto) 70.2 % (37.0-80.0); Red Cell Distribution Width 16.2 % (11.8-14.3); White Blood Cell 7.6 10^3/uL (4.4-10.8)
[2023-09-21] MEDS ORDERED: NITROGLYCERIN 50MG/250ML 250 ML IV ONE (18:35)
[2023-09-21] MEDS ORDERED: EPINEPHrine HCL 1 MG/10 ML SYRG ONE (18:38)
[2023-09-21 18:40] LABS: Hemoglobin 6.9 g/dL (13.5-17.5)
[2023-09-21] MEDS ORDERED: EPINEPHrine HCL 1 MG/10 ML SYRG IV ONE (19:09)
[2023-09-21] MEDS ORDERED: ATROPINE SULF 1 MG/10ml SYR IM ONE (19:09)
[2023-09-21] MEDS ORDERED: SODIUM BICARB 8.4% 50Meq/50ml SYR INJ IV ONE (19:09)
[2023-09-21 19:15] LABS: Albumin 1.5 g/dL (3.2-4.8); Alkaline Phosphatase 38 U/L (46-116); Anion Gap 14 (5-15); Aspartate Aminotransferase 13 U/L (13-40); BUN/Creatinine Ratio 18.4 (10.0-20.0); Bilirubin, Total 0.6 mg/dL (0.2-1.0); Blood Urea Nitrogen 18 mg/dL (9-23); Glucose 188 mg/dL (74-106); Total Protein 2.3 g/dL (5.7-8.2)
[2023-09-21] MEDS ORDERED: HEPARIN DRIP/D5W 100UNITS/ML 250 ML IV SCH (19:15)
[2023-09-21 19:22] LABS: Sodium 151 mmol/L (136-145)
[2023-09-21 19:25] LABS: Chloride 127 mmol/L (98-107); Potassium 1.6 mmol/L (3.5-5.1)
[2023-09-21 19:26] LABS: Alanine Aminotransferase 9 U/L (7-40); Calcium 3.5 mg/dL (8.7-10.4); Carbon Dioxide 10 mmol/L (20-30)
[2023-09-21 19:40] LABS: Base Excess -17.9 mmol/L (-2.0-2.0)
[2023-09-21] MEDS ORDERED: ATORVASTATIN 20 MG TAB PO SCH (22:00)
[2023-09-22] MEDS ORDERED: PANTOPRAZOLE 40 MG/10 ML VIAL INJ IV SCH ×2 (10:00)
[2023-09-22] MEDS ORDERED: ASPirin-EC 81 mg tab PO SCH (10:00)
[2023-09-23] MEDS ORDERED: CLOPIDOGREL BISULFATE 75 MG TAB PO SCH (10:00)
== END 2023-09-21 19:10 | DRG 321 ==
LOC: EDBD 10:00 → ER 10:00 → TELE 13:15
PROVIDERS: ADMIT Hospitalist; ATTEND Hospitalist
PROC: 027136Z Dilation of Coronary Artery, Two Arteries with Three Drug-eluting Intraluminal Devices, Percutaneous Approach (ICD-10-PCS; principal; 2023-09-21)
PROC: 5A2204Z Restoration of Cardiac Rhythm, Single (ICD-10-PCS; 2023-09-21)
PROC: 4A023N7 Measurement of Cardiac Sampling and Pressure, Left Heart, Percutaneous Approach (ICD-10-PCS; 2023-09-21)
PROC: B215YZZ Fluoroscopy of Left Heart using Other Contrast (ICD-10-PCS; 2023-09-21)
PROC: 5A1935Z Respiratory Ventilation, Less than 24 Consecutive Hours (ICD-10-PCS; 2023-09-21)
PROC: 0BH17EZ Insertion of Endotracheal Airway into Trachea, Via Natural or Artificial Opening (ICD-10-PCS; 2023-09-21)
DX: I25.119 Atherosclerotic heart disease of native coronary artery with unspecified angina pectoris (principal); I21.4 Non-ST elevation (NSTEMI) myocardial infarction; I47.20 Ventricular tachycardia, unspecified; E78.5 Hyperlipidemia, unspecified; R57.0 Cardiogenic shock; I49.01 Ventricular fibrillation; I10 Essential (primary) hypertension; E10.65 Type 1 diabetes mellitus with hyperglycemia; F17.200 Nicotine dependence, unspecified, uncomplicated; E10.21 Type 1 diabetes mellitus with diabetic nephropathy; Z95.5 Presence of coronary angioplasty implant and graft; I25.2 Old myocardial infarction; Z88.8 Allergy status to other drugs, medicaments and biological substances; Z91.148 Patient's other noncompliance with medication regimen for other reason; Z82.49 Family history of ischemic heart disease and other diseases of the circulatory system
CPT/HCPCS: 36415; 36600; 71045; 75635; 80053; 81001; 82150; 82805; 83690; 84484; 85025; 85610; 85730; 86850; 86900; 86901; 92928; 92941; 93005; 94002; 96365; 96375; 96376; 99152; 99291; C1887; C9113; G0378; J0171; J2250; J2405; Q9967